=== PATIENT | female | born 1990 | race Caucasian/White ===

== ENCOUNTER 2017-11-01 03:03 | Emergency (ER) | payer SELFPAY ==
[2017-11-01 03:07] VITALS: BP 118/59; PULSE 101; RESP 16; TEMP 98.2; O2SAT 97
[2017-11-01 03:39] VITALS: O2SAT 96
--- NOTE | 2017-11-01 03:39 | PD ---
HPI Chief Complaint: Alcohol/Drug Intoxication Time Seen by Provider: 03:14 Travel History International Travel<30 days: Yes Contact w/Intl Traveler<30days: Yes Name of Country Traveled to: [place] Traveled to known affect area: No History of Present Illness HPI 27-year-old female complains of dizziness, headache, chest pain, seizure. Patient states that she had a glass of champagne this evening. Patient states that she felt dizzy subsequently. Patient states that she probably had the seizure this evening. Patient has history of seizure years ago. Patient states that she had brain MRI done a year ago and it was normal. 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 Patient states that she was seen by lacquer polisher for that. Patient has not seen any physician for her seizure episode. Patient states that she has aching headache for the past week. Patient complained of chest heaviness for the past week. Patient denies any coughing congestion fever chills. Patient denies any visual change. Patient denies any neck pain. Patient denies abdominal pain. Patient denies any nausea vomiting diarrhea. Patient denies any vaginal discharge or bleeding. Patient denies any chance of being . Patient denies any illicit drugs abuse. PFSH Past Medical History Heart Rhythm Problems: Yes (neurogenic syncope) Diminished Hearing: No ?: Not LMP: 11-01-17 Social History Alcohol Use: Yes Tobacco Use: No Substance Use: No Allergies-Medications (Allergen,Severity, Reaction): Coded Allergies: No Known Allergies (Unverified , 11/01/17) Reported Meds & Prescriptions Reported Meds & Active Scripts Active No Active Prescriptions or Reported Medications Review of Systems General / Constitutional: No: Fever Eyes: No: Visual changes HENT: Positive: Headaches Cardiovascular: Positive: Chest Pain or Discomfort Respiratory: No: Shortness of Breath Gastrointestinal: No: Abdominal Pain Genitourinary: No: Dysuria Musculoskeletal: No: Pain Skin: No Rash Neurologic: Positive: Syncope, No: Weakness Psychiatric: No: Depression Endocrine: No: Polydipsia Hematologic/Lymphatic: No: Easy Bruising Physical Exam Narrative GENERAL: Well-nourished, well-developed patient. SKIN: Focused skin assessment warm/dry. HEAD: Normocephalic. EYES: No scleral icterus. No injection or drainage. NECK: Supple, trachea midline. No JVD or lymphadenopathy. CARDIOVASCULAR: Regular rate and rhythm without murmurs, gallops, or rubs. RESPIRATORY: Breath sounds equal bilaterally. No accessory muscle use. GASTROINTESTINAL: Abdomen soft, non-tender, nondistended. MUSCULOSKELETAL: No cyanosis, or edema. BACK: Nontender without obvious deformity. No CVA tenderness. Neurologic exam: Patient is awake and alert oriented 3. Patient moves all extremity well. No obvious focal neurological deficit. Data Data Last Documented VS Vital Signs Date Time Temp Pulse Resp B/P (MAP) Pulse Ox O2 Delivery O2 Flow Rate FiO2 11/01/17 03:39 96 Room Air 11/01/17 03:07 98.2 101 16 118/59 (78) Orders Orders Electrocardiogram (11/01/17 03:25) Complete Blood Count With Diff (11/01/17 03:25) Comprehensive Metabolic Panel (11/01/17 03:25) Creatine Kinase (Cpk) (11/01/17 03:25) Troponin I (11/01/17 03:25) Thyroid Stimulating Hormone (11/01/17 03:25) Chest, Single Ap (11/01/17 03:25) Iv Access Insert/Monitor (11/01/17 03:25) Ecg Monitoring (11/01/17 03:25) Oximetry (11/01/17 03:25) Drug Screen, Random Urine (11/01/17 03:25) Alcohol (Ethanol) (11/01/17 03:25) Calcium Gluconate Inj (Calcium Gluconate (11/01/17 06:00) Labs Laboratory Tests Test 11/01/17 03:29 11/01/17 04:00 Blood Urea Nitrogen 11 MG/DL Creatinine 0.59 MG/DL Random Glucose 92 MG/DL Total Protein 6.5 GM/DL Albumin 3.1 GM/DL Calcium Level 7.3 MG/DL Alkaline Phosphatase 83 U/L Aspartate Amino Transf (AST/SGOT) 19 U/L Alanine Aminotransferase (ALT/SGPT) 15 U/L Total Bilirubin 0.2 MG/DL Sodium Level 144 MEQ/L Potassium Level 3.4 MEQ/L Chloride Level 115 MEQ/L Carbon Dioxide Level 19.3 MEQ/L Anion Gap 10 MEQ/L Estimat Glomerular Filtration Rate 124 ML/MIN Protein Corrected Calcium 7.6 MG/DL Total Creatine Kinase 76 U/L Troponin I LESS THAN 0.02 NG/ML Thyroid Stimulating Hormone 3rd Gen 1.190 uIU/ML Ethyl Alcohol Level 180 MG/DL White Blood Count 12.5 TH/MM3 Red Blood Count 4.66 MIL/MM3 Hemoglobin 13.7 GM/DL Hematocrit 40.8 % Mean Corpuscular Volume 87.4 FL Mean Corpuscular Hemoglobin 29.3 PG Mean Corpuscular Hemoglobin Concent 33.5 % Red Cell Distribution Width 13.2 % Platelet Count 429 TH/MM3 Mean Platelet Volume 6.5 FL Neutrophils (%) (Auto) 80.9 % Lymphocytes (%) (Auto) 15.1 % Monocytes (%) (Auto) 3.6 % Eosinophils (%) (Auto) 0.1 % Basophils (%) (Auto) 0.3 % Neutrophils # (Auto) 10.1 TH/MM3 Lymphocytes # (Auto) 1.9 TH/MM3 Monocytes # (Auto) 0.5 TH/MM3 Eosinophils # (Auto) 0.0 TH/MM3 Basophils # (Auto) 0.0 TH/MM3 CBC Comment DIFF FINAL Differential Comment MDM Medical Decision Making Medical Screen Exam Complete: Yes Emergency Medical Condition: Yes Interpretation(s) 5:57 AM. Chest x-ray shows no acute consolidation. CBC WBC 12.5. 80 neutrophil. Potassium 3.4. Bicarb 19.3. Protein corrected calcium 7.6.. Cardiac enzymes are normal. Alcohol 180. Differential Diagnosis Differential diagnosis including vasovagal reaction, electrolyte imbalance, arrhythmia, neurogenic syncope, seizure. Narrative Course 27-year-old female with history of recurrent syncope, complaining of head pressure, chest pain and dizziness. Calcium gluconate 1 g IV given. Diagnosis Primary Impression: Atypical chest pain Additional Impressions: Cephalgia Qualified Codes: R51 - Headache Occasional alcohol consumption Hypocalcemia Patient Instructions: General Instructions Additional Instructions: Follow-up with neurologist and lacquer polisher. Return as needed. Med/Other Pt SpecificInfo: No Meds Exist/No RX given Scripts No Active Prescriptions or Reported Meds Disposition: 01 DISCHARGE HOME Condition: Stable Oli Melissa MD Nov 01, 2017 03:39
[2017-11-01 04:09] LABS: ALBUMIN 3.1 GM/DL (3.4-5.0); ALT (GPT) 15 U/L (10-53); AST (GOT) 19 U/L (15-37); BICARBONATE 19.3 MEQ/L (21.0-32.0); BLOOD UREA NITROGEN 11 MG/DL (7-18); CALCIUM 7.3 MG/DL (8.5-10.1); CHLORIDE 115 MEQ/L (98-107); CREATININE 0.59 MG/DL (0.50-1.00); GLOMERULAR FILTRATION RATE 124 ML/MIN (>89); GLUCOSE,RANDOM 92 MG/DL (74-106); SODIUM (NA) 144 MEQ/L (136-145)
[2017-11-01 04:21] LABS: ALKALINE PHOSPHATASE 83 U/L (45-117); CALCIUM-PROTEIN CORRECTED 7.6 MG/DL (8.5-10.1); TOTAL BILIRUBIN ADULT 0.2 MG/DL (0.2-1.0); TOTAL PROTEIN 6.5 GM/DL (6.4-8.2); TROPONIN I LESS THAN 0.02 NG/ML (0.02-0.05)
[2017-11-01 04:27] LABS: AUTOMATED NEUTROPHIL # 10.1 TH/MM3 (1.8-7.7); BASOPHIL % 0.3 % (0.0-2.0); EOSINOPHIL % 0.1 % (0.0-4.0); HEMATOCRIT 40.8 % (35.0-46.0); HEMOGLOBIN 13.7 GM/DL (11.6-15.3); LYMPH % 15.1 % (9.0-44.0); LYMPHOCYTE # 1.9 TH/MM3 (1.0-4.8); MEAN CELL VOLUME 87.4 FL (80.0-100.0); MEAN CORPUSCULAR HEMOGLOBIN 29.3 PG (27.0-34.0); MEAN CORPUSCULAR HGB CONC 33.5 % (32.0-36.0); MEAN PLATELET VOLUME 6.5 FL (7.0-11.0); MONO % 3.6 % (0.0-8.0); MONOCYTE # 0.5 TH/MM3 (0-0.9); NEUT % 80.9 % (16.0-70.0); PLATELET COUNT 429 TH/MM3 (150-450); RED BLOOD COUNT 4.66 MIL/MM3 (4.00-5.30); RED CELL DISTRIBUTION WIDTH 13.2 % (11.6-17.2); WHITE BLOOD COUNT 12.5 TH/MM3 (4.0-11.0)
--- NOTE | 2017-11-01 05:38 | RADRPT ---
EXAM DATE/TIME: 11/01/2017 04:42 [facility] COMPARISON: No previous studies available for comparison. INDICATIONS : Shortness of breath. MEDICAL HISTORY : None. SURGICAL HISTORY : None. ENCOUNTER: Initial ACUITY: 1 day PAIN SCORE: 0/10 LOCATION: Bilateral chest FINDINGS: A single view of the chest demonstrates the lungs to be symmetrically aerated without evidence of mas s, infiltrate or effusion. The cardiomediastinal contours are unremarkable. Osseous structures are intact. CONCLUSION: Normal examination. Simba Ryan Jr., MD on November 01, 2017 at 5:36 Board Certified Radiologist. This report was verified electronically.
[2017-11-01] MEDS ORDERED: CALCIUM GLUCONATE INJ 1 GM in DEXTROSE 5% IN WATER 100ML INJ 100 ML IV ONE ×2 (06:00)
--- NOTE | 2017-11-02 00:14 | EKG ---
Date Performed: 11/01/2017 Time Performed: 04:12:46 PTAGE: 27 years EKG: Sinus rhythm POSSIBLE LEFT ATRIAL ENLARGEMENT POSSIBLE LEFT VENTRICULAR HYPERTROPHY ABNORMAL ECG NO PREVIOUS TRACING DOCTOR: Jeremy Go Interpretating Date/Time 11/02/2017 00:14:07
== END 2017-11-01 07:15 | disposition home or self-care (01) ==
LOC: NEPC 03:03
DX: R07.89 Other chest pain (principal); R51 Headache; E83.51 Hypocalcemia; R94.31 Abnormal electrocardiogram [ECG] [EKG]; R56.9 Unspecified convulsions; Z72.89 Other problems related to lifestyle
CPT/HCPCS: 71045; 80053; 80307; 82550; 84443; 84484; 85025; 93005; 96374; 99285; J0610